=== PATIENT | female | born 2000 | race Caucasian/White ===

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

== ENCOUNTER → 2020-06-05 14:08 | Outpatient (CLI) | payer OTHER, SELFPAY ==
[2020-06-05 13:36] VITALS: BMI 21.9
[2020-06-05 14:54] LABS: Absolute Lymphocyte Count 1.27 X10^3/uL (0.83-4.51); Absolute Neutrophil Count 3.4 X10^3/uL (2.0-7.7); Basophil# 0.03 X10^3/uL; Basophil% 0.6 % (0-1); Eosinophil# 0.06 X10^3/uL; Eosinophils% 1.2 % (0-5); Hematocrit 41.9 % (37-47); Hemoglobin 13.4 g/dL (12.0-15.0); Lymphocyte # 1.27 X10^3/ul (4.0); Lymphocyte % 25.2 % (19-41); Mean Platelet Vol. 11.1 fl (6.2-12.0); Monocyte# 0.31 X10^3/uL; Monocyte% 6.2 % (0-10); NRBC Flagged by Analyzer 0 % (0-5); Neutrophil # 3.36 X10^3/uL (2.7-7.7); Neutrophil % 66.6 % (47-70); Platelet Count 216 K/mm3 (150-450); RBC Distribution Width CV 12.2 % (11.6-14.6); RBC Distribution Width SD 43.7 fl (35.1-43.9); Red Blood Count 4.32 M/mm3 (4.2-5.4)
[2020-06-05 15:35] LABS: ALB/GLOB Ratio 1.1 RATIO (0.9-2.4); AST(SGOT) 18 U/L (15-37); Alanine Aminotransfer ALT/SGPT 32 U/L (13-56); Albumin, Serum 4.1 g/dL (3.2-5.0); Alkaline Phosphatase 112 U/L (45-117); Anion Gap 5 (5-15); BUN 11 mg/dL (7-18); BUN/Creat Ratio 15.6 RATIO (10-20); Chloride 106 mmol/L (98-107); Creatinine, Serum 0.71 mg/dL (0.55-1.02); EST Glomerular Filtration Rate 112 mL/min (>60); Est Glom Filt Rate - Afr Amer 136 mL/min (>60); Globulin 3.6 g/dL (2.2-4.2); Glucose 74 mg/dL (74-106); Potassium 3.7 mmol/L (3.5-5.1); Protein, Total 7.7 g/dL (6.4-8.2); Sodium Level 140 mmol/L (136-145); T4 Free Direct 0.83 ng/dL (0.76-1.46); Thyroid Stim Hormone (TSH) 1.07 uIU/mL (0.358-3.74)
== END ==
PROVIDERS: PCP Internal Medicine; Visit Provider Internal Medicine
DX: K59.09 Other constipation (principal)
CPT/HCPCS: 36415; 80053; 84439; 84443; 85025

== ENCOUNTER → 2020-06-21 09:38 | Outpatient (CLI) | payer OTHER, SELFPAY ==
[2020-06-20 15:00] VITALS: BMI 21.9
[2020-06-21 12:52] LABS: Prothrombin Time (Protime)PT. 12.9 SECONDS (11.7-14.9)
[2020-06-21 12:53] LABS: Partial Thromboplast Time 26.9 Seconds (24.1-36.2)
[2020-06-21 12:58] LABS: Vitamin D,25 Hydroxy 28.2 ng/mL
[2020-06-21 13:57] LABS: Absolute Lymphocyte Count 1.21 X10^3/uL (0.83-4.51); Absolute Neutrophil Count 2.6 X10^3/uL (2.0-7.7); Basophil# 0.03 X10^3/uL; Basophil% 0.7 % (0-1); Eosinophil# 0.09 X10^3/uL; Eosinophils% 2.1 % (0-5); Hematocrit 41.4 % (37-47); Hemoglobin 13.1 g/dL (12.0-15.0); Lymphocyte # 1.21 X10^3/ul (0.83-4.51); Lymphocyte % 28.3 % (19-41); Mean Corp Hgb Conc 31.6 g/dL (32-36); Mean Corpuscular Hgb 31.3 pg (27.0-32.0); Mean Corpuscular Volume 98.8 fL (81-99); Mean Platelet Vol. 11.4 fl (6.2-12.0); NRBC Flagged by Analyzer 0 % (0-5); Neutrophil # 2.63 X10^3/uL (2.7-7.7); Neutrophil % 61.7 % (47-70); Platelet Count 230 K/mm3 (150-450); RBC Distribution Width CV 12.6 % (11.6-14.6); RBC Distribution Width SD 45.4 fl (35.1-43.9); Red Blood Count 4.19 M/mm3 (4.2-5.4); White Blood Count 4.3 K/mm3 (4.4-11.0)
== END ==
PROVIDERS: PCP Internal Medicine; Referring Provider Nurse Practitioner Family; Visit Provider Nurse Practitioner Family
DX: R23.3 Spontaneous ecchymoses (principal); R23.8 Other skin changes; E55.9 Vitamin D deficiency, unspecified
CPT/HCPCS: 36415; 82306; 85025; 85610; 85730

== ENCOUNTER → 2020-12-08 10:26 | Outpatient (CLI) | payer OTHER, SELFPAY ==
[2020-12-08 12:28] LABS: Erythrocyte Sedimentation Rate 3 mm/hr (0-30)
[2020-12-08 12:40] LABS: CRP 6.43 mg/L (0.0-3.0); Rheumatoid Factor < 10.0 IU/mL (<15)
[2020-12-09 21:09] LABS: ANTINUCLEAR ANTIBODIES DIRECT Negative (Negative)
[2020-12-12 00:41] LABS: CCP IgG Antibodies 3 units (0-19)
== END ==
PROVIDERS: PCP Internal Medicine; Referring Provider Internal Medicine; Visit Provider Internal Medicine
DX: M19.90 Unspecified osteoarthritis, unspecified site (principal)
CPT/HCPCS: 36415; 85652; 86038; 86140; 86200; 86225; 86235; 86431

== ENCOUNTER 2021-04-30 15:33 | Outpatient (CLI) | payer OTHER, SELFPAY ==
[2021-04-30 19:57] LABS: Chlamydia Trachomatis by PCR Negative (Negative); Neisserai gonorrhoeae by PCR Negative (Negative); Probe Check PASS; Sample Adequacy Control PASS; Specimen Processing Control PASS
[2021-05-01 09:14] LABS: HIV - WCH Non-Reactive (Nonreactive); Hepatitis C Antibody Non-Reactive (Nonreactive); Syphilis Antibodies Non-reactive
[2021-05-02 10:17] LABS: HSV 1 IgG < 0.91 index (0.00-0.90); HSV 2 IgG < 0.91 index (0.00-0.90)
== END 2021-04-30 23:59 | disposition home or self-care (01) ==
PROVIDERS: PCP Internal Medicine; Referring Provider Nurse Practitioner Women's Health; Visit Provider Nurse Practitioner Women's Health
DX: Z11.3 Encounter for screening for infections with a predominantly sexual mode of transmission (principal); Z20.2 Contact with and (suspected) exposure to infections with a predominantly sexual mode of transmission
CPT/HCPCS: 36415; 86695; 86696; 86703; 86780; 86803; 87491; 87591

== ENCOUNTER → 2021-11-26 | Outpatient (CLI) | payer OTHER, SELFPAY ==
[2021-11-26 15:19] LABS: Absolute Lymphocyte Count 1.54 X10^3/uL (0.83-4.51); Absolute Neutrophil Count 3.2 X10^3/uL (2.0-7.7); Basophil# 0.03 X10^3/uL; Basophil% 0.6 % (0-1); Eosinophil# 0.07 X10^3/uL; Eosinophils% 1.4 % (0-5); Hematocrit 40.6 % (37-47); Hemoglobin 13.4 g/dL (12.0-15.0); Lymphocyte # 1.54 X10^3/ul (0.83-4.51); Lymphocyte % 30.3 % (19-41); Mean Corpuscular Hgb 32.2 pg (27.0-32.0); Mean Corpuscular Volume 97.6 fL (81-99); Mean Platelet Vol. 11.3 fl (6.2-12.0); Monocyte# 0.27 X10^3/uL; Monocyte% 5.3 % (0-10); NRBC Flagged by Analyzer 0 % (0-5); Neutrophil # 3.18 X10^3/uL (2.7-7.7); Neutrophil % 62.4 % (47-70); Platelet Count 239 K/mm3 (150-450); RBC Distribution Width CV 11.7 % (11.6-14.6); RBC Distribution Width SD 42.4 fl (35.1-43.9); Red Blood Count 4.16 M/mm3 (4.2-5.4); White Blood Count 5.1 K/mm3 (4.4-11.0)
[2021-11-26 15:59] LABS: ALB/GLOB Ratio 1.1 RATIO (0.9-2.4); AST(SGOT) 19 U/L (15-37); Alanine Aminotransfer ALT/SGPT 30 U/L (13-56); Alkaline Phosphatase 114 U/L (45-117); Anion Gap 6 (5-15); BUN 13 mg/dL (7-18); BUN/Creat Ratio 15.7 RATIO (10-20); Calcium,Total 8.9 mg/dL (8.5-10.1); Chloride 106 mmol/L (98-107); Creatinine, Serum 0.83 mg/dL (0.55-1.02); EST Glomerular Filtration Rate 92 mL/min (>60); Est Glom Filt Rate - Afr Amer 111 mL/min (>60); Globulin 3.5 g/dL (2.2-4.2); Glucose 84 mg/dL (74-106); Potassium 4.1 mmol/L (3.5-5.1); Protein, Total 7.5 g/dL (6.4-8.2); Sodium Level 139 mmol/L (136-145); T4 Free Direct 0.94 ng/dL (0.76-1.46); Thyroid Stim Hormone (TSH) 1.68 uIU/mL (0.358-3.74)
== END | disposition home or self-care (01) ==
LOC: BIMLAB 11:58
PROVIDERS: PCP Internal Medicine; Referring Provider Internal Medicine; Visit Provider Internal Medicine
DX: K59.09 Other constipation (principal)
CPT/HCPCS: 36415; 80053; 84439; 84443; 85025

== ENCOUNTER 2022-01-29 10:54 | Outpatient (CLI) | payer OTHER, SELFPAY ==
[2022-01-29 11:33] LABS: Erythrocyte Sedimentation Rate 3 mm/hr (0-30)
[2022-01-29 12:03] LABS: CRP < 2.90 mg/L (0.0-3.0)
[2022-01-30 12:08] LABS: Anti-Centromere B Ab <0.2 AI (0.0-0.9); Anti-Chromatin <0.2 AI (0.0-0.9); Anti-Jo <0.2 AI (0.0-0.9); Anti-Scleroderma-70 AB <0.2 AI (0.0-0.9); RNP Ab <0.2 AI (0.0-0.9); SJOGREN'S Anti-SS-A test < 0.2 AI (0.0-0.9); SJOGREN'S Anti-SS-B test < 0.2 AI (0.0-0.9); Smith Ab <0.2 AI (0.0-0.9)
[2022-01-30 14:09] LABS: Cytoplasmic Ab (C-ANCA) <1:20 titer (Neg:<1:20); Endomysial Antibody IgA Negative (Negative); Immunoglobulin A 176 mg/dL (87-352)
[2022-01-30 14:36] LABS: Perinuclear Ab (P-ANCA) <1:20 titer (Neg:<1:20); t-Transglutaminase IgA <2 U/mL (0-3)
[2022-01-30 14:46] LABS: Anti-dsDNA Ab <1 IU/mL (0-9)
== END 2022-01-29 23:59 | disposition home or self-care (01) ==
LOC: LAB 10:58
PROVIDERS: PCP Internal Medicine; Referring Provider Nurse Practitioner Adult Health; Visit Provider Nurse Practitioner Adult Health
DX: K59.09 Other constipation (principal)
CPT/HCPCS: 36415; 82784; 83516; 85652; 86140; 86225; 86235; 86255; 86256

== ENCOUNTER → 2022-02-15 | Outpatient (CLI) | payer OTHER, SELFPAY ==
--- NOTE | 2022-02-15 13:11 | CT_ITS ---
STUDY: CT ABDOMEN AND PELVIS WITH CONTRAST REASON FOR EXAM: Female, 21 years old. cons tip, lower abd pain -- oral and iv RADIATION DOSAGE (If Supplied By Facility): CTDIvol = ( 8.82 ) mGy, DLP = ( 394.86 ) mGycm TECHNIQUE: Transaxial images were obtained from the dome of the diaphragm to the symphysis pubis with oral contrast. Oral and amp;amp; IV Readi-CAT and amp;amp; 100mL Isovue-300 was administered. Sagittal and coronal images were reconstructed. Individualized dose optimization techniques were used for this CT. COMPARISON: None. FINDINGS: The visualized lung bases are unremarkable. The visualized portions of the heart are within normal limits. Normal liver. Normal gallbladder and extrahepatic biliary system. Normal spleen. Normal pancreas. Normal bilateral adrenal glands. Normal right kidney. Normal left kidney. Normal visualized stomach. Normal small intestine. Large amount of fecal material is seen in the colon. There are surgical clips in the region of the appendix consistent with a prior appendectomy. Normal abdominal aorta. Normal inferior vena cava. Normal retroperitoneum. Normal urinary bladder. Normal abdominal wall. Normal osseous structures. CT/Abdomen/Pelvis WITH Contrast IMPRESSION: Large amount of fecal material is seen throughout the colon. Electronically Signed: Marcel Sifuentes MD at 15:15 EST ,
== END | disposition home or self-care (01) ==
LOC: CT 13:10
PROVIDERS: PCP Internal Medicine; Referring Provider Nurse Practitioner Adult Health; Visit Provider Nurse Practitioner Adult Health
DX: R10.30 Lower abdominal pain, unspecified (principal); K59.09 Other constipation
CPT/HCPCS: 74177; Q9967

== ENCOUNTER 2022-12-24 12:16 | Emergency (ER) | payer OTHER, SELFPAY ==
[2022-12-24 12:17] VITALS: BP 130/84; PULSE 90; RESP 16; TEMP 36.2; O2SAT 99; BMI 24.3
--- NOTE | 2022-12-24 13:06 | VDLE_ITS ---
Reason For Study: Left leg pain RIGHT LEFT CFV is compressible, spontaneous, phasic, GSV is normal. competent and demonstrates normal CFV is compressible, spontaneous, phasic, augmentation. competent, and demonstrates normal Procedure augmentation. This is a venous duplex using B-mode, color FV is compressible, spontaneous, phasic, flow and spectral Doppler. competent and demonstrates normal Exam performed portable in ED. augmentation. A preliminary report was called and/or faxed POP V is compressible, spontaneous, phasic, to Dr. Espinoza. competent and demonstrates normal augmentation. T/P Trunk is compressible. PTV is compressible. LT PerV is compressible. Superficial vein thrombosis is ntoed in the left SSV. Thrombus is noted to be at origin of SSV from the PopV, without extension into the PopV. VL/Venous Duplex US, Unilateral Interpretation Summary There is no evidence of left lower extremity deep vein thrombosis. Superficial thrombophlebitis left small saphenous vein extending up to but not into the left popliteal vein. Patent and compressible left great saphenous vein Patent and compressible right common femoral vein Ordering Physician: Edgar Martinez Referring Physician: Tracey Stewart Performed By: Jaycee Mina RVT
--- NOTE | 2022-12-24 14:22 | EDS_ITS ---
HPI History of Present Illness HPI Narrative: Patient presents with pain and swelling to her left lower leg that has been getting worse over the last 4 days. Patient states she was on a recent car trip to [place]. Patient states her pain has gradually gotten worse. Patient states it is aching and stabbing. Patient states it is worse with ambulation. Patient denies any paresthesias or weakness. Patient states it is mainly over her lower leg. Patient denies any fevers or chills. Patient is concerned that this could be a DVT. Patient denies any trauma or injury. Chief Complaint: Lower Extremity Injury Informant: patient Onset/Context/Timing Onset: Days (4) Context: Gradual Onset Timing: Continuous Quality of Pain: Aching and Stabbing Location: Left lower leg Worsened by: Ambulation Relieved by: Nothing Associated Symptoms Associated Symptoms: Negative for Parasthesia, Weakness or Loss of Funtion PFSH [facility] Medical History Abdominal pain Anemia Arthritis Asthma Chronic constipation Gastritis Joint pain Joint stiffness Nausea Pulmonary embolism Home Medications lactulose 20 gram/30 mL oral solution 20 g (30 mL) PO DAILY #1,200 mL 04/18/22 [Rx Last Taken Unknown] rivaroxaban 15 mg tablet (Xarelto) 15 mg PO BID #42 TABLETS 12/24/22 [Rx Last Taken Unknown] Allergy/AdvReac Type Severity Reaction Status Date / Time No Known Allergies Allergy Verified 12/24/22 12:20 Family History (Reviewed 04/18/22 @ 11:36 by Nahomi Krause BLOOD BANK CALENDAR CONTROL CLERK, BLOOD BANK CALENDAR CONTROL CLERK-C) Grandfather Diabetes Colon cancer prostate Cancer Heart disease Grandmother Cancer lung Osteoporosis Hypertension Mother Anemia Surgical History H/O esophagogastroduodenoscopy Holiday teeth removed Social History Smoking Status: Never smoker alcohol intake: never substance use type: does not use caffeine: Yes what type of physical activity do you participate in: running and weight training frequency: 3-4 times per week seatbelt use: always ROS ROS ED Constitutional Constitutional ED: Denies chills or fever(s) Eyes Eyes: Denies blurry vision or change in vision ENT ENT ED: Denies rhinorrhea or sore throat Cardiovascular Cardiovascular: Denies chest pain or palpitations Respiratory/Chest Respiratory/Chest: Denies cough or dyspnea Gastrointestinal Gastrointestinal: Denies nausea or vomiting Genitourinary Genitourinary ED: Denies dysuria or hematuria Musculoskeletal Musculoskeletal: Denies back pain or neck pain Integumentary Denies abscess or rash Neurologic Neurologic: Denies headache(s) or weakness Allergic/Immunologic Allergic/Immunologic ED: Denies mouth swelling or urticaria EXAM Physical Exam Const Vital Signs: 12/24/22 12:17 Temperature 97.2 F L Temperature Source Temporal Pulse Rate 90 Respiratory Rate 16 Blood Pressure 130/84 H Blood Pressure Mean 99 Pulse Ox 99 Oxygen Delivery Method Room Air Positive well nourished and well developed General Appearance ED: well developed and NAD HEENT Reports moist mucous membranes Neck full ROM and supple Extremity Extremity Narrative: There is mild tenderness over the left calf. There is no edema or erythema. There is no warmth noted. There is some mild pain with dorsiflexion of the left ankle. There is no ecchymosis noted. Pedal pulses are equal bilaterally. Sensation was intact to light touch bilaterally in the lower extremities. Strength is 5/5 bilaterally in the lower extremities. Neuro oriented x3, CN's II-XII intact bilaterally, moves all extremities and no sensory deficits noted Sensorium / Orientation: alert Motor Exam: strength 5/5 throughout Psych mental status grossly normal MDM MDM MDM Narrative Medical decision making narrative: Differential diagnosis includes DVT, calf strain, and cellulitis. Venous duplex of the left lower extremity will be obtained to assess for DVT. Radiography Diagnostic Testing: Clinical Impression(s) from Imaging Studies Venous Doppler Study 12/24/22 13:06 Interpretation Summary There is no evidence of left lower extremity deep vein thrombosis. Superficial thrombophlebitis left small saphenous vein extending up to but not into the left popliteal vein. Patent and compressible left great saphenous vein Patent and compressible right common femoral vein Ordering Physician: Edgar Martinez Referring Physician: Tracey Stewart Performed By: Jaycee Mina RVT Venous duplex of the left lower extremity was obtained. There is superficial thrombophlebitis however the superficial phlebitis extends almost into the popliteal vein. Treatment and Re-Evaluation Narrative: Patient was advised of her findings. I will discuss the case with the patient's primary care physician to see if she would want patient started on anticoagulants or if she would just want to follow-up and repeat the venous duplex. Case was discussed with Dr. Stewart, patient's primary care physician. She recommended starting the patient on Xarelto. This was ordered. Patient was given her first dose here. Patient was instructed to follow-up in 5 to 7 days. Patient was instructed return if worse in any way. Patient understood and was agreeable with the plan. All questions were answered. Discharge Plan Triage Chief Complaint: Lower Extremity Injury ED Provider: Lance Espinoza Dx/Rx/DC Orders Clinical Impression: Superficial thrombophlebitis of left leg Instructions: ED Thrombophlebitis, Superficial Prescriptions: New Xarelto 15 mg tablet 15 mg PO BID Qty: 42 0RF No Action lactulose 20 gram/30 mL solution 20 g PO DAILY Qty: 1200 5RF Primary Care Provider: Tracey Stewart Referrals: Tracey Stewart MD [Primary Care Provider] - 5-7 Days Disposition Disposition: Home, Self Care Discharge Date/Time: 12/24/22 14:57
[2022-12-24] MEDS: Rivaroxaban 15 MG Tablet PO (14:51)
== END 2022-12-24 14:57 | disposition home or self-care (01) ==
PROVIDERS: Emergency Provider Emergency Medicine; PCP Internal Medicine; Visit Provider Emergency Medicine
DX: I80.02 Phlebitis and thrombophlebitis of superficial vessels of left lower extremity (principal); K59.09 Other constipation; Z79.899 Other long term (current) drug therapy
CPT/HCPCS: 93971; 99282

== ENCOUNTER → 2023-04-29 | Outpatient (CLI) | payer OTHER, SELFPAY ==
[2023-04-29 12:16] LABS: Absolute Lymphocyte Count 1.51 X10^3/uL (0.83-4.51); Absolute Neutrophil Count 2.9 X10^3/uL (2.0-7.7); Basophil# 0.05 X10^3/uL; Eosinophils% 2.1 % (0-5); Hematocrit 41.1 % (37-47); Hemoglobin 13.2 g/dL (12.0-15.0); Lymphocyte # 1.51 X10^3/ul (0.83-4.51); Lymphocyte % 31.1 % (19-41); Mean Corp Hgb Conc 32.1 g/dL (32-36); Mean Corpuscular Hgb 30.1 pg (27.0-32.0); Mean Corpuscular Volume 93.6 fL (81-99); Mean Platelet Vol. 11.3 fl (6.2-12.0); Monocyte# 0.29 X10^3/uL; NRBC Flagged by Analyzer 0 % (0-5); Neutrophil # 2.89 X10^3/uL (2.7-7.7); Neutrophil % 59.6 % (47-70); Platelet Count 242 K/mm3 (150-450); RBC Distribution Width CV 11.9 % (11.6-14.6); RBC Distribution Width SD 40.9 fl (35.1-43.9); Red Blood Count 4.39 M/mm3 (4.2-5.4); White Blood Count 4.9 K/mm3 (4.4-11.0)
[2023-04-29 12:33] LABS: ALB/GLOB Ratio 1.2 RATIO (0.9-2.4); AST(SGOT) 12 U/L (15-37); Alanine Aminotransfer ALT/SGPT 28 U/L (13-56); Albumin, Serum 4.1 g/dL (3.2-5.0); Alkaline Phosphatase 82 U/L (45-117); Anion Gap 6 (5-15); BUN 12 mg/dL (7-18); BUN/Creat Ratio 13.8 RATIO (10-20); Calcium,Total 9.3 mg/dL (8.5-10.1); Chloride 107 mmol/L (98-107); Creatinine, Serum 0.87 mg/dL (0.55-1.02); EST Glomerular Filtration Rate 86 mL/min (>60); Est Glom Filt Rate - Afr Amer 104 mL/min (>60); Globulin 3.5 g/dL (2.2-4.2); Glucose 91 mg/dL (74-106); Potassium 4.1 mmol/L (3.5-5.1); Protein, Total 7.6 g/dL (6.4-8.2); Sodium Level 141 mmol/L (136-145)
== END | disposition home or self-care (01) ==
LOC: BIMLAB 08:23
PROVIDERS: PCP Internal Medicine; Referring Provider Nurse Practitioner; Visit Provider Nurse Practitioner
DX: D64.9 Anemia, unspecified (principal)
CPT/HCPCS: 36415; 80053; 85025

== ENCOUNTER 2023-06-11 18:49 | Observation (INO) | payer OTHER, SELFPAY ==
[2023-06-11 18:49] VITALS: BP 135/83; PULSE 105; RESP 18; TEMP 36.3; O2SAT 100; BMI 22.6
--- NOTE | 2023-06-11 19:12 | EKG12_ITS ---
Test Reason : CHEST OTHER Blood Pressure : / mmHG Vent. Rate : 082 BPM Atrial Rate : 082 BPM P-R Int : 144 ms QRS Dur : 072 ms QT Int : 370 ms P-R-T Axes : 055 064 057 degrees QTc Int : 432 ms Normal sinus rhythm Normal ECG Confirmed by SHAILA REID, STEPHANIE ([id number]), story editor HALEY KNOX ([id number]) on 06/13/2023 9:09:27 AM Referred By: MARY Confirmed By:STEPHANIE LINTON MD
--- NOTE | 2023-06-11 19:31 | EDS_ITS ---
HPI History of Present Illness Chief Complaint: Chest Other Informant: patient Onset/Context/Timing Onset: Today Activity at onset: gradual Timing: Continuous Location: Substernal and Right Parasternal Worsened By: Breathing Relieved By: Nothing Associated Symptoms: Positive for Diaphoresis, Dyspnea, Lightheadedness and Palpitations; Negative for Nausea, Vomiting, Cough, Fever or Acid Reflux Narrative Narrative: Patient presents with chest pain and shortness of breath that has been getting worse over the past couple days. Patient states she has been having some shortness of breath over the past few days but today started having some pain in her chest. Patient states it is over the substernal area and radiates up into the right chest. Patient states it is worse with breathing. Patient states she has been having some sweats and lightheadedness. Patient states she also has been having some palpitations. Patient states she has been feeling weak. Patient had a recent foot surgery. Patient states she has had prior pulmonary emboli. CVD Risk Factors: Negative for Hypertension, Diabetes, Hypercholesterolemia, Family History 1' </=55 or Smoking PE Risk Factors: Positive for Recent Travel/Surgery and Prior DVT or PE; Negative for Recent Immobilization, Cancer or OCP + Smoking + >/=35 PFSH PFSH Medical History (Updated 06/11/23 @ 22:[address] Lance Espinoza, DO) Anemia Arthritis Chronic constipation Dairy product intolerance GERD (gastroesophageal reflux disease) History of venous thromboembolism Pulmonary embolism Home Medications cholecalciferol (vitamin D3) 25 mcg (1,000 unit) capsule 25 mcg PO DAILY 03/20/23 [History Last Taken Unknown] ferrous sulfate 325 mg (65 mg iron) tablet (Feosol) 325 mg PO DAILY 03/20/23 [History Last Taken Unknown] Allergy/AdvReac Type Severity Reaction Status Date / Time No Known Allergies Allergy Verified 04/29/23 08:01 Family History Grandfather Diabetes paternal Cancer paternal Heart disease paternal Colon cancer paternal Grandmother Cancer lung - maternal Osteoporosis paternal Hypertension maternal Mother Anemia Grandfather Blood clot in leg maternal - post knee surgery Surgical History (Updated 06/11/23 @ 22:[address] Michelle Rodriguez MD) H/O esophagogastroduodenoscopy History of foot surgery [place] teeth removed Social History Smoking Status: Never smoker alcohol intake: current alcohol intake frequency: a few times a month substance use type: does not use caffeine: Yes Type: coffee Number of servings: 1 what type of physical activity do you participate in: running and weight training frequency: 3-4 times per week seatbelt use: always ROS ROS ED Constitutional Constitutional ED: Reports sweats; Denies chills or fever(s) Eyes Eyes: Denies blurry vision or change in vision ENT ENT ED: Denies rhinorrhea or sore throat Cardiovascular Cardiovascular: Reports chest pain and palpitations Respiratory/Chest Respiratory/Chest: Reports dyspnea; Denies cough Gastrointestinal Gastrointestinal: Denies nausea or vomiting Genitourinary Genitourinary ED: Denies dysuria or hematuria Musculoskeletal Musculoskeletal: Denies back pain or neck pain Integumentary Denies abscess or rash Neurologic Neurologic: Denies headache(s) or weakness Allergic/Immunologic Allergic/Immunologic ED: Denies mouth swelling or urticaria EXAM Physical Exam Const Vital Signs: 06/11/23 18:49 06/11/23 18:49 06/11/23 18:49 Temperature 97.3 F L Temperature Source Temporal Pulse Rate 105 H Respiratory Rate 18 Respiratory Effort Normal Blood Pressure 135/83 H Blood Pressure Mean 100 Pulse Ox 100 Oxygen Delivery Method Room Air Room Air 06/11/23 19:49 06/11/23 20:49 Temperature Temperature Source Pulse Rate 84 Respiratory Rate 16 Respiratory Effort Blood Pressure 135/76 H Blood Pressure Mean 95 Pulse Ox 98 Oxygen Delivery Method Room Air Room Air Positive well nourished, well developed and obese General Appearance ED: well developed Nutritional Appearance: obese HEENT Reports moist mucous membranes Neck supple and no JVD Resp normal respiratory effort and clear to auscultation bilaterally Cardio regular rate and regular rhythm GI soft to palpation, non-tender and non-distended Neuro oriented x3, CN's II-XII intact bilaterally and no sensory deficits noted Sensorium / Orientation: awake and alert Motor Exam: strength 5/5 throughout Psych mental status grossly normal MDM MDM MDM Narrative Medical decision making narrative: Differential diagnosis includes cardiac dysrhythmia, cardiac ischemia, pulmonary embolism, electrolyte abnormality, and anemia. CBC will be obtained to assess for leukocytosis and anemia. Basic metabolic profile will be obtained to assess for renal function and electrolyte abnormality. PT was INR will be obtained to assess for coagulopathy. High-sensitivity troponin will be obtained to assess for cardiac ischemia. EKG will be obtained to assess for cardiac dysrhythmia and cardiac ischemia. CTA of the chest will be obtained to assess for pulmonary embolism. Lab Data Attestation: I reviewed the patient's lab results. Lab results narrative: CBC was reviewed and was within normal limits. PT with INR was reviewed and was within normal limits. Basic metabolic profile was reviewed and was within normal limits. High-sensitivity troponin was reviewed and was normal at 8. Labs: Laboratory Results - last 24 hr 06/11/23 20:20 WBC 7.8 RBC 4.18 L Hgb 12.7 Hct 37.4 MCV 89.5 MCH 30.4 MCHC 34.0 RDW Std Deviation 38.0 RDW Coeff of Gopi 11.7 Plt Count 173 MPV 10.8 Immature Gran % (Auto) 0.300 Neut % (Auto) 71.4 H Lymph % (Auto) 20.5 Pierce % (Auto) 5.4 Eos % (Auto) 1.8 Baso % (Auto) 0.6 Absolute Neuts (auto) 5.5 Absolute Lymphs (auto) 1.59 Nucleated RBC % 0 PT 13.9 INR 1.1 Sodium 139 Potassium 3.9 Chloride 107 Carbon Dioxide 26.0 Anion Gap 6 BUN 13 Creatinine 0.76 Estim Creat Clear Calc 104.48 Est GFR (MDRD) Af Amer 122 Est GFR (MDRD) Non-Af 101 BUN/Creatinine Ratio 17.2 Glucose 87 Calcium 9.1 Troponin I High Sens 8 Radiography Diagnostic Testing: Clinical Impression(s) from Imaging Studies Chest CTA 06/11/23 19:41 IMPRESSION: Large saddle pulmonary embolus without evidence of right heart strain. Chronic prominent left ventricular chamber size. Follow-up echocardiogram may be beneficial when clinically able to exclude cardiomyopathy. Electronically Signed: Jesse Montaño MD at 21:24 EDT , CTA of the chest was obtained. There is a large saddle pulmonary embolus but no evidence of right heart strain. There is chronic left ventricular enlargement. This was interpreted by the radiologist and was also independently reviewed by myself. EKG Initial EKG: Attestation: I personally reviewed and interpreted this EKG as follows: Interpretation: Sinus Rhythm (82) and No Acute Injury Pattern Comments: EKG was obtained. On my independent interpretation, it showed a normal sinus rhythm with a rate of 82. [place] interval, QRS interval, and QTc intervals were all normal. [place] was normal. There are no acute ST or T wave changes. Prior EKG tracings: available for review Prior: Unchanged (09/15/2017) Treatment and Re-Evaluation :: Patient was advised of her findings. Patient was started on Lovenox. 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 Case was discussed with the transfer line at [facility]. There are no available beds. Patient is agreeable to be admitted here. Case was discussed with the hospitalist. She will admit the patient to her service. Patient and family understood and were agreeable with the plan. All questions were answered. Discharge Plan Triage Chief Complaint: Chest Other ED Provider: Lance Espinoza Dx/Rx/DC Orders Clinical Impression: Dyspnea, Pulmonary embolism Prescriptions: No Action cholecalciferol (vitamin D3) 25 mcg (1,000 unit) capsule 25 mcg PO DAILY ferrous sulfate [Feosol] 325 mg (65 mg iron) tablet 325 mg PO DAILY Primary Care Provider: Tracey Stewart Referrals: Tracey Stewart MD [Primary Care Provider] - Disposition Disposition: Acute Care Hospital [facility]
--- NOTE | 2023-06-11 19:41 | CT_ITS ---
We are attempting to reach an attending provider to discuss findings. An addendum with communication details will be sent when the communication is complete. STUDY: CTA CHEST REASON FOR EXAM: Female, 22 years old. Chest pain RADIATION DOSAGE (If Supplied By Facility): CTDIvol = ( 6.49 ) mGy, DLP = ( 174.15 ) mGycm TECHNIQUE: The examination was performed with the intravenous administration of IV 100mL Isovue-370. Post-processing of the angiographic images was performed, with multiplanar reformation and 3D reconstruction. Individualized dose optimization techniques were used for this CT. COMPARISON: January 29, 2019. FINDINGS: Unremarkable thyroid. Large saddle pulmonary embolus extending into bilateral lower lobe and upper lobe branches and multiple segments. Slight enlargement of the main pulmonary artery. No overall cardiomegaly. Normal RV LV ratio. Persistent prominent left ventricle chamber size compared with prior CT. No reflux of contrast into the IVC. No pericardial effusion or densely calcified coronary atherosclerosis. No aortic aneurysmal dilatation or dissection. No mediastinal or hilar adenopathy. Unremarkable esophagus. No endobronchial lesion. Minimal atelectasis along the left lateral lower lung. No consolidation, gross infarct, effusion, pneumothorax. Normal pulmonary parenchyma. Normal osseous structures. Normal visualized upper abdomen. CT/CTA Chest W/WO Contrast IMPRESSION: Large saddle pulmonary embolus without evidence of right heart strain. Chronic prominent left ventricular chamber size. Follow-up echocardiogram may be beneficial when clinically able to exclude cardiomyopathy. Electronically Signed: Jesse Montaño MD at 21:24 EDT ,
[2023-06-11 20:30] LABS: Absolute Lymphocyte Count 1.59 X10^3/uL (0.83-4.51); Absolute Neutrophil Count 5.5 X10^3/uL (2.0-7.7); Basophil# 0.05 X10^3/uL; Basophil% 0.6 % (0-1); Eosinophil# 0.14 X10^3/uL; Eosinophils% 1.8 % (0-5); Hematocrit 37.4 % (37-47); Hemoglobin 12.7 g/dL (12.0-15.0); Lymphocyte # 1.59 X10^3/ul (0.83-4.51); Lymphocyte % 20.5 % (19-41); Mean Corpuscular Hgb 30.4 pg (27.0-32.0); Mean Corpuscular Volume 89.5 fL (81-99); Mean Platelet Vol. 10.8 fl (6.2-12.0); Monocyte# 0.42 X10^3/uL; Monocyte% 5.4 % (0-10); NRBC Flagged by Analyzer 0 % (0-5); Neutrophil # 5.53 X10^3/uL (2.7-7.7); Neutrophil % 71.4 % (47-70); Platelet Count 173 K/mm3 (150-450); RBC Distribution Width CV 11.7 % (11.6-14.6); Red Blood Count 4.18 M/mm3 (4.2-5.4); White Blood Count 7.8 K/mm3 (4.4-11.0)
[2023-06-11 20:44] LABS: International Normalized Ratio 1.1; Prothrombin Time (Protime)PT. 13.9 SECONDS (11.7-14.9)
[2023-06-11 20:49] VITALS: BP 135/76; PULSE 84; RESP 16; O2SAT 98
[2023-06-11 20:49] LABS: Anion Gap 6 (5-15); BUN 13 mg/dL (7-18); BUN/Creat Ratio 17.2 RATIO (10-20); Calcium,Total 9.1 mg/dL (8.5-10.1); Chloride 107 mmol/L (98-107); Creatinine, Serum 0.76 mg/dL (0.55-1.02); EST Glomerular Filtration Rate 101 mL/min (>60); Est Glom Filt Rate - Afr Amer 122 mL/min (>60); Estimated Creatinine Clearance 104.48 ml/min; Glucose 87 mg/dL (74-106); Potassium 3.9 mmol/L (3.5-5.1); Sodium Level 139 mmol/L (136-145); Troponin-I HS (w/2H Reflex) 8 pg/mL (3.0-54.0)
[2023-06-11 22:00] VITALS: BP 119/81; PULSE 94; RESP 14; TEMP 36.8; O2SAT 98
--- NOTE | 2023-06-11 22:25 | PCM.HP.STD ---
HPI - General General Date of Admission: 06/11/23 Date of Service: 06/11/23 Chief Complaint: Dyspnea, chest pain. HPI Narrative The patient is a 22 y/o F w/ PMHx: Chronic anemia, Chronic constipation, GERD w/ Gastritis history, Diary intolerance, Hx VTE previously while on control, following prolonged car ride with eventual hypercoagulable panel only notable for isolated low free protein S with recent podiatric surgery transition to following per report to aspirin only who now presents to the [facility] ED on 06/11/23 with onset of substernal and right parasternal chest discomfort worsened with deep inspiratory effort with associated dyspnea, lightheadedness, palpitations and diaphoresis worse over the last several days and worse with exertion with generalized weakness and fatigue prompting eventual ED evaluation. Workup in the ED included T97.3, heart rate 105, BP 135/83, respiratory rate 18, 100% on room air with most recent repeat vitals heart rate 84, BP 135/76, respiratory rate 16, 98% on room air, CBC with WBC 7.8, hemoglobin 12.7, MCV 89.5, platelet 173 without marked shift, unremarkable coags, unremarkable BMP, troponin 8, CTPA with a large Saddle pulmonary embolus without evidence of any right heart strain, chronic prominent LV chamber size, EKG with sinus rhythm with no acute evidence of ischemia unchanged from previous. In the ED patient administered therapeutic Lovenox x 1. [facility] Medical History Anemia Arthritis Chronic constipation Dairy product intolerance GERD (gastroesophageal reflux disease) History of venous thromboembolism Pulmonary embolism Home Medications aspirin 325 mg capsule 325 mg PO DAILY dvt prophalaxis 06/11/23 [History Last Taken Unknown] Allergy/AdvReac Type Severity Reaction Status Date / Time No Known Allergies Allergy Verified 06/11/23 22:58 Family History Grandfather Diabetes paternal Cancer paternal Heart disease paternal Colon cancer paternal Grandmother Cancer lung - maternal Osteoporosis paternal Hypertension maternal Mother Anemia Grandfather Blood clot in leg maternal - post knee surgery Father No problems noted. Surgical History H/O esophagogastroduodenoscopy History of foot surgery [place] teeth removed Social History Smoking Status: Never smoker alcohol intake: current alcohol intake frequency: a few times a month substance use type: does not use caffeine: Yes Type: coffee Number of servings: 1 what type of physical activity do you participate in: running and weight training frequency: 3-4 times per week seatbelt use: always ROS ROS Narrative Admission Review of Systems: CONSTITUTIONAL: No weight loss, fever, chills, + weakness or fatigue. HEENT: + Lightheadedness. Eyes: No visual loss, blurred vision, double vision or yellow sclerae. Ears, Nose, Throat: No hearing loss, sneezing, congestion, runny nose or sore throat. SKIN: + Recent podiatric surgery, healing well. CARDIOVASCULAR: + Pleuritic chest discomfort, lightheadedness, palpitations. No marked edema, orthopnea, syncopal events. RESPIRATORY: + Dyspnea. Cough or sputum, wheezing, hemoptysis. GASTROINTESTINAL: No anorexia, nausea, vomiting or diarrhea, abdominal pain, melena, BRBPR. GENITOURINARY: No dysuria, frequency, urgency or retention. NEUROLOGICAL: No headache, dizziness, syncope, paralysis, ataxia, numbness or tingling in the extremities, focal weakness, change in bowel or bladder control, seizure. MUSCULOSKELETAL: + muscle, back pain, joint pain or stiffness. HEMATOLOGIC: + History of anemia, no recent easy bleeding/bruising history. LYMPHATICS: No enlarged nodes. No history of splenectomy. PSYCHIATRIC: No history of depression or anxiety. ENDOCRINOLOGIC: No reports of sweating, cold or heat intolerance. No polyuria or polydipsia. ALLERGIES: No history of asthma, hives, eczema or rhinitis. Vital Signs Vital Signs Vital Signs: 06/11/23 18:49 06/11/23 18:49 06/11/23 18:49 Temperature 97.3 F L Temperature Source Temporal Pulse Rate 105 H Respiratory Rate 18 Respiratory Effort Normal Blood Pressure 135/83 H Blood Pressure Mean 100 Pulse Ox 100 Oxygen Delivery Method Room Air Room Air 06/11/23 19:49 06/11/23 20:49 Temperature Temperature Source Pulse Rate 84 Respiratory Rate 16 Respiratory Effort Blood Pressure 135/76 H Blood Pressure Mean 95 Pulse Ox 98 Oxygen Delivery Method Room Air Room Air Weight Weight: 136 lb Body Mass Index (BMI) 22.6 Physical Exam Narrative Physical Examination: General: Awake, alert, oriented x 3 and cooperative, seated upright in the ED bed, fatigued but well-appearing with no distress evident. Skin: Normal color, normal turgor, no icterus, no cyanosis, healing well from recent podiatric surgery. HEENT: AT/NC, EOMI, PERRLA, MMM, no carotid bruits or JVD noted. Lungs: CTA bilaterally, moderate effort, mild decrease BL bases, no rales, ronchi or wheezing. Heart: Mildly tachycardic with regular rhythm; no gallop, rub audible. Abdomen: Soft, NTTP, ND, normal BS, no HSM. Extremities: No cyanosis, clubbing, or edema. Neurological: Patient awake, alert, oriented as noted, cognitive function intact; pupils equally reactive to light and accommodation, cranial nerves II-XII grossly normal, moving all 4 extremities, no focal deficits, strength mildly to moderately globally decreased secondary to acute presentation. Psychiatric: Affect appears fatigued otherwise normal, no acute evidence of depressive or anxiety feelings. Results Lab / Micro Data 06/11/23 20:20 06/11/23 20:20 Labs: Laboratory Results - last 24 hr 06/11/23 20:20: WBC 7.8, RBC 4.18 L, Hgb 12.7, Hct 37.4, MCV 89.5, MCH 30.4, MCHC 34.0, RDW Std Deviation 38.0, RDW Coeff of Gopi 11.7, Plt Count 173, MPV 10.8, Immature Gran % (Auto) 0.300, Neut % (Auto) 71.4 H, Lymph % (Auto) 20.5, [place] % (Auto) 5.4, Eos % (Auto) 1.8, Baso % (Auto) 0.6, Absolute Neuts (auto) 5.5, Absolute Lymphs (auto) 1.59, Nucleated RBC % 0, PT 13.9, INR 1.1, Sodium 139, Potassium 3.9, Chloride 107, Carbon Dioxide 26.0, Anion Gap 6, BUN 13, Creatinine 0.76, Estim Creat Clear Calc 104.48, Est GFR (MDRD) Af Amer 122, Est GFR (MDRD) Non-Af 101, BUN/Creatinine Ratio 17.2, Glucose 87, Calcium 9.1, Troponin I High Sens 8 Imaging Radiology Impression Chest CTA 06/11/23 19:41 IMPRESSION: Large saddle pulmonary embolus without evidence of right heart strain. Chronic prominent left ventricular chamber size. Follow-up echocardiogram may be beneficial when clinically able to exclude cardiomyopathy. Electronically Signed: Jesse Montaño MD at 21:24 EDT , ADDENDUM: 06/11/23 2212 IMPRESSION: Large saddle pulmonary embolus without evidence of right heart strain. Chronic prominent left ventricular chamber size. Follow-up echocardiogram may be beneficial when clinically able to exclude cardiomyopathy. N.B. : The above Results were Read Back by Jesse Montaño MD to Lance Espinoza DO, and understanding confirmed on 06/11/2023 22:05:42 (ET). Electronically Signed: Jesse Montaño MD at 21:24 EDT , Assessment & Plan Assessment/Plan (1) Pulmonary embolism: PLAN: Plan The patient is a 22 y/o F w/ PMHx: Chronic anemia, Chronic constipation, GERD w/ Gastritis history, Diary intolerance, Hx VTE previously while on control, following prolonged car ride with eventual hypercoagulable panel only notable for isolated low free protein S with recent podiatric surgery transition to following per report to aspirin only who now presents to the [facility] ED on 06/11/23 with onset of substernal and right parasternal chest discomfort worsened with deep inspiratory effort with associated dyspnea, lightheadedness, palpitations and diaphoresis worse over the last several days and worse with exertion with generalized weakness and fatigue prompting eventual ED evaluation. #1. 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 Patient with history of VTE while on control with limited hypercoagulable panel at that time as she had been on anticoagulation with recurrent emboli during her prolonged car ride of 8 hours with a distal acute superficial phlebitis involving the small saphenous vein up to the popliteal vein placed on anticoagulation at that time eventually de-escalated off again with hypercoagulable panel 02/2023 notable for only isolated low free protein S with the rest of the panel normal with hematology recommendations for no long-term anticoagulation if normal activities ongoing, planned repeat protein S profile in the future, avoidance for life of estrogen containing preparations, therapeutic level anticoagulation with low molecular weight heparin during , venous thromboembolism prophylaxis postoperatively starting 12 to 24 hours following any electively planned orthopedic surgeries on the back or lower extremities, recommendation for frequent ambulation/calf exercises and graduated compression stockings with any travel more than 4 to 6 hours. From discussion with patient and family most recent evaluation with repeat protein S evaluation was normal therefore hematology had been amenable to patient being on aspirin therapy only following recent surgery. EKG without acute findings, troponin normal x 1. Will admit to PCU, maintain on cardiac telemetry. Will obtain ECHO, BNP. Will continue therapeutic lovenox regimen with pending AM insurance oral regimen investigation. At this point given the severity of this presentation patient likely needs to be on lifelong anticoagulation. #2. Recent left great toe surgery with heel bone marrow aspiration: Encourage strongly patient to continue using boot as recommended per her surgeon with ambulation, elevation extremity. Patient had been on full-strength aspirin therapy postoperative prophylaxis. #3. Chronic anemia/iron deficiency anemia: Noted previous history, not on any chronic iron therapy currently, admission CBC with hemoglobin 12.7, MCV 89.5, encourage continued outpatient follow-up with hematology. #4. Chronic constipation: Will have as needed bowel agents. #5. GERD with history of gastritis: Not on any chronic regimen, if necessary may add, as needed Mylanta therapy. #6. DVT prophylaxis: Therapeutic Lovenox pending NOAC oral cost investigation. Charges/Coding Visit Charges Inpatient E&M: 09460 Init Hosp L2
[2023-06-11 22:27] LABS: Reflex Troponin-HS? (from REC) Y
[2023-06-11] MEDS: Enoxaparin 60 MG/0.6 ML Syringe SC (22:39)
[2023-06-11] MEDS: Morphine 4 MG/ML Syringe IV (22:52)
[2023-06-11] MEDS: Ondansetron 4 MG/2 ML Vial IV (22:52)
[2023-06-11 23:06] VITALS: BP 112/74; PULSE 110; RESP 14; TEMP 36.8; O2SAT 98
[2023-06-11 23:27] VITALS: BMI 22.4
--- NOTE | 2023-06-11 23:59 | ECHOD_ITS ---
Reason For Study: PE Procedure This was a 2D Doppler, Color Flow transthoracic echocardiogram. Exam performed portable in patient room. Left Ventricle Normal LV size. Left ventricular systolic function is normal. The estimated ejection fraction is 53 %. No regional wall motion abnormalities noted. Right Ventricle Normal RV size. Normal systolic function. Atria Normal left atrium. Normal right atrium. Mitral Valve Normal mitral valve. Tricuspid Valve The tricuspid valve is not well visualized. Mild (1+) tricuspid valve insufficiency. Pulmonary artery systolic pressure is 34 mmHg. Aortic Valve Normal aortic valve. Pulmonic Valve Normal pulmonic valve. Great Vessels Normal aortic root. The pulmonary artery is normal size. Normal inferior vena cava. Pericardium/Pleural No pericardial effusion. MMode/2D Measurements & Calculations LVIDd: 3.9 cm IVSd: 0.78 cm Ao root diam: 2.5 cm LVIDs: 2.8 cm LVPWd: 0.83 cm RVDd: 3.4 cm FS: 28.2 % LAV(MOD-bp): 30.7 ml LVAd ap4: 27.5 cm2 SV(MOD-sp4): 44.4 ml LAV(MOD-bp) Indexed: 18.3 ml/m2 LVLd ap4: 7.6 cm LAV(MOD-sp2): 26.0 ml EDV(MOD-sp4): 84.0 ml LAV(MOD-sp4): 28.0 ml EDV(sp4-el): 84.4 ml LVAs ap4: 17.6 cm2 LVLs ap4: 6.6 cm ESV(MOD-sp4): 39.6 ml ESV(sp4-el): 40.1 ml EF(MOD-sp4): 52.9 % EF(sp4-el): 52.5 % SV(sp4-el): 44.3 ml LA A4 area: 13.7 cm2 LA dimension(2D): 2.6 cm RA A4 area: 11.3 cm2 TAPSE: 1.9 cm Time Measurements MV dec time: 0.18 sec Doppler Measurements & Calculations MV E max jamal: 68.2 cm/sec Lat Peak E' Jamal: 23.2 cm/sec Med Peak E' Jamal: 14.6 cm/sec MV A max jamal: 46.9 cm/sec E/E' lat: 2.9 E/E' med: 4.7 MV E/A: 1.5 MV V2 max: 91.0 cm/sec Ao V2 max: 120.7 cm/sec MV max P.3 mmHg MV dec slope: 404.7 cm/sec2 Ao max P.8 mmHg MV V2 mean: 54.2 cm/sec Ao V2 mean: 86.0 cm/sec MV mean P.4 mmHg Ao mean P.4 mmHg MV V2 VTI: 22.7 cm Ao V2 VTI: 22.7 cm AV (velocity ratio): 0.90 LV V1 max: 112.3 cm/sec TR max jamal: 269.7 cm/sec LV V1 max P.0 mmHg TR max P.1 mmHg LV V1 mean P.9 mmHg LV V1 mean: 80.7 cm/sec LV V1 VTI: 20.3 cm ECHO/Echo Complete Interpretation Summary Normal LV size. Left ventricular systolic function is normal. The estimated ejection fraction is 53 %. Pulmonary artery systolic pressure is 34 mmHg. Ordering Physician: Michelle Rodriguez Referring Physician: Tracey Stewart Performed By: Verónica Jamil and Student
[2023-06-12] VITALS: BP 120/77; PULSE 89; RESP 18; TEMP 36.5; O2SAT 98
[2023-06-12 00:10] LABS: BNP,B-Type NATRIURETIC PEPTIDE 4.1 pg/mL (0-100)
[2023-06-12 00:12] LABS: Troponin-I HS 8 pg/mL (3.0-54.0)
[2023-06-12 05:10] VITALS: BP 96/64; PULSE 85; RESP 15; TEMP 36.2; O2SAT 95
[2023-06-12] MEDS: Acetaminophen 325 MG Tablet 650 MG PO ×2 (05:18→10:31)
[2023-06-12] MEDS: Enoxaparin 60 MG/0.6 ML Syringe SC (05:19)
[2023-06-12 07:28] LABS: Absolute Lymphocyte Count 2.15 X10^3/uL (0.83-4.51); Absolute Neutrophil Count 3.7 X10^3/uL (2.0-7.7); Basophil# 0.04 X10^3/uL; Basophil% 0.6 % (0-1); Eosinophil# 0.16 X10^3/uL; Eosinophils% 2.5 % (0-5); Hematocrit 34.2 % (37-47); Hemoglobin 11.8 g/dL (12.0-15.0); Lymphocyte # 2.15 X10^3/ul (0.83-4.51); Lymphocyte % 33.2 % (19-41); Mean Corp Hgb Conc 34.5 g/dL (32-36); Mean Corpuscular Hgb 30.8 pg (27.0-32.0); Mean Corpuscular Volume 89.3 fL (81-99); Mean Platelet Vol. 11.5 fl (6.2-12.0); Monocyte# 0.41 X10^3/uL; Monocyte% 6.3 % (0-10); NRBC Flagged by Analyzer 0 % (0-5); Neutrophil % 57.1 % (47-70); Platelet Count 173 K/mm3 (150-450); RBC Distribution Width CV 11.8 % (11.6-14.6); Red Blood Count 3.83 M/mm3 (4.2-5.4); White Blood Count 6.5 K/mm3 (4.4-11.0)
[2023-06-12 07:52] VITALS: O2SAT 100
[2023-06-12 08:21] LABS: ALB/GLOB Ratio 1.1 RATIO (0.9-2.4); AST(SGOT) 18 U/L (15-37); Alanine Aminotransfer ALT/SGPT 21 U/L (13-56); Albumin, Serum 3.5 g/dL (3.2-5.0); Alkaline Phosphatase 73 U/L (45-117); Anion Gap 9 (5-15); BUN 11 mg/dL (7-18); BUN/Creat Ratio 14.6 RATIO (10-20); Calcium,Total 8.7 mg/dL (8.5-10.1); Chloride 107 mmol/L (98-107); Creatinine, Serum 0.75 mg/dL (0.55-1.02); EST Glomerular Filtration Rate 101 mL/min (>60); Est Glom Filt Rate - Afr Amer 123 mL/min (>60); Estimated Creatinine Clearance 105.87 ml/min; Globulin 3.1 g/dL (2.2-4.2); Glucose 91 mg/dL (74-106); Potassium 3.5 mmol/L (3.5-5.1); Protein, Total 6.6 g/dL (6.4-8.2); Sodium Level 139 mmol/L (136-145)
[2023-06-12 10:26] VITALS: BP 105/69; PULSE 80; RESP 16; TEMP 36.4; O2SAT 98
--- NOTE | 2023-06-12 12:08 | CASEMGMT ---
Addendum entered by Aicha Winkler 06/12/23 14:34: Spoke to pt mother and they are fine with rx being sent to [facility]. Med was ordered before changed in computer system. Original Note: OPAL SOMMER Assessment: Face to Face with pt for initial transition planning/care coordination assessment. OPAL SOMMER introduced self and role at [facility], pt voices understanding and consents to assessment. Pt is A&O x4 and answers all questions appropriately at this time. Pt lying in bed in no distress with mother at bedside. Pt agreeable to assessment with mother present. Care providers, pharmacy, and demographics verified/updated. Admitting Dx: acute saddle PE, dyspnea/cp PCP:Terry Specialists:emeterio Swanson at [facility]; alondra Briscoe Preferred Pharmacy: [facility] Insurance: [employer] Prescription Benefit: yes LNOK: April Sampson, mother; Chadd Sampson, father Living Arrangements: Pt lives with parents and sister in a two story home with 3 steps to enter without a rail. Pt reports she is I in ADL's and denies concerns at home. Pt has a boot in the room that she states she uses to walk with. Transportation: Pt drives self and denies concerns with transportation. DME:walking boot, crutches HHC/SNF: Denies hx of Pt states no concerns with going home at time of dc. Pt states no further concerns/needs. CM to follow. Advised pt to ask CM if any further question/concerns/needs arise, voices understanding. Pt Goal: Home Plan: Home, follow for jada Tolbert RN, CM
--- NOTE | 2023-06-12 13:44 | DCINST_ITS ---
Discharge Instructions Diet Discharge Diet: No restrictions Activity Discharge Activity: No Restrictions Weight Bearing Status: Full weight bearing Follow Up Care Test Results: Test results from this visit will be discussed in further detail at your follow- up appointment, if applicable. Discharge Plan Admission Admit Date/Time: 06/11/23 22:25 Primary Reason for Your Visit: Shortness of breath Attending Provider: Jignesh Castellon Primary Care Provider: Tracey Stewart Consulting Providers: Michelle Rodriguez Instructions Additional Instructions / Restrictions: Please take Xarelto below as instructed. Please call Dr. Rogers's office in the next few weeks to schedule a follow-up appointment with him. Discharge Orders/Prescriptions Prescriptions: New Xarelto DVT-PE Treat 30d Start 15 mg (42)- 20 mg (9) tablets,dose pack See Rx Instructions .ROUTE .COMPLEX Qty: 51 0RF Rx Instructions: take one-15 mg tablet twice daily for 21 days, then one-20 mg tablet once daily; must take with meal/food Discontinued aspirin 325 mg capsule 325 mg PO DAILY Referrals / Follow Up: Tracey Stewart MD [Primary Care Provider] - Disposition Disposition (needs filled in before D/C Order can be placed): Home, Self Care
--- NOTE | 2023-06-12 13:47 | DS.PCM_ITS ---
Providers Date of Admission: 06/11/23 Date of Discharge: 06/12/23 Primary Care Physician: Dr. Tracey Stewart MD Reason For Visit: ACUTE SADDLE PE, DYSPNEA/CP Diagnosis Discharge Diagnosis (1) Pulmonary embolism: Status: Acute Code(s): I26.99 - Other pulmonary embolism without acute cor pulmonale Medications at Discharge Home Medications rivaroxaban 15 mg tablet (Xarelto) 15 mg PO BID 21 days #42 tabs 06/12/23 Hospital Course Operations None Procedures EKG, Transthoracic echo and - (CTA chest) Summary of Care Provided Minutes Spent on Discharge: 35 Hospital Course: Patient is a 22-year-old female who presented to [facility] ED on 06/11/2023 with worsening shortness of breath on exertion and chest pain. Short hospital course as noted below. Patient discharged home with no therapy needs in stable condition on 06/11. 1. Acute large saddle pulmonary embolism, low risk; history of VTE CTA chest on admit showed large saddle pulmonary embolus extending into bilateral lower lobe and upper lobe branches and multiple segments, along with slight lodgment of main pulmonary artery but no cardiomegaly, normal RV to LV ratio and no RV strain noted. Echo on 06/11 showed EF 53%, no regional wall motion abnormalities noted, normal RV size and function, mildly elevated pulmonary artery systolic pressure of 34 mmHg, no other abnormalities. Patient follows with Dr. Adams with Hem/Onc in the office, last visit in 03/2023. Has history of PE back in 2018 while she was on combo control pills, as well as recent history of acute distal superficial phlebitis involving the small saphenous vein up to the popliteal vein after a long car ride in 12/2022. She completed 6 months of Eliquis after the PE in 2018, and she more recently completed 6 weeks of Xarelto after the superficial vein thrombosis. ? Treated with therapeutic Lovenox twice daily while inpatient. Patient remained hemodynamically stable on room air during admission and dyspnea on exertion improved by hospital day 2. Discussed with Dr. Adams over the phone on day of discharge. He noted that the patient had two recent blood draws at separate times that showed a low protein S level, which would mean she is positive for a hypercoagulable disorder. He noted that she will likely need lifelong anticoagulation therapy but recommended that she see him in the office in the next few weeks to discuss further. Discharged patient on Xarelto with DVT loading dose. Discharged home in stable condition. 2. Recent left great toe surgery with healed bone marrow aspiration ? Procedure done about 1 month prior to this admission. Per her surgeon, recommended that she use boot with ambulation and continue with elevation of the extremity. Patient was on full strength aspirin therapy postoperatively for DVT prophylaxis, will discontinue aspirin and start Xarelto on discharge as noted above. 3. Chronic anemia ? Hemoglobin 12.7 on admit, repeat hemoglobin 11.8 on hospital day 2. Baseline hemoglobin appears to be around 12-13. Stable while inpatient, no signs of bleeding. Recommend outpatient follow-up. Total clinical time spent by myself addressing the patient's medical issues, reviewing all the data, and collaborating with patient's care team: 35 minutes. Physical Exam Const alert, oriented x3, no apparent distress, average body habitus, healthy raffy earing and well nourished Constitutional Narrative: Pleasant young female, sitting up comfortably in bed, conversing normally, no acute distress. General Appearance: cooperative, comfortable, well kempt and well developed HEENT normocephalic, head/scalp atraumatic, hearing grossly normal bilaterally, nasal mucous membranes and turbinates normal and moist oral mucous membranes Eyes PERRL, EOMs intact bilaterally and conjunctivae normal Neck full ROM Chest inspection of chest normal Resp normal respiratory effort, normal air movement, no use of accessory muscles and clear to auscultation bilaterally Resp Narrative: Breathing comfortably on room air at rest. Good air movement throughout bilaterally, no wheezing or crackles noted. Cardio regular rate, regular rhythm, no murmurs and peripheral pulses 2+ throughout GI normal to inspection, nondistended, normoactive bowel sounds, soft to palpation, non-tender and non-distended Back/Spine normal ROM Extremity normal to inspection Skin no rashes or lesions noted Neuro moves all extremities and no focal motor deficits Speech: speech normal Psych mental status grossly normal Weight / BMI Weight Weight: 61.235 kg Body Mass Index (BMI) 22.4 ABG / Lab / Microbiology Data 06/12/23 06:25 06/12/23 06:25 Laboratory: Laboratory Results - last 24 hr 06/11/23 20:20: WBC 7.8, RBC 4.18 L, Hgb 12.7, Hct 37.4, MCV 89.5, MCH 30.4, MCHC 34.0, RDW Std Deviation 38.0, RDW Coeff of Gopi 11.7, Plt Count 173, MPV 10.8, Immature Gran % (Auto) 0.300, Neut % (Auto) 71.4 H, Lymph % (Auto) 20.5, [place] % (Auto) 5.4, Eos % (Auto) 1.8, Baso % (Auto) 0.6, Absolute Neuts (auto) 5.5, Absolute Lymphs (auto) 1.59, Nucleated RBC % 0, PT 13.9, INR 1.1, Sodium 139, Potassium 3.9, Chloride 107, Carbon Dioxide 26.0, Anion Gap 6, BUN 13, Creatinine 0.76, Estim Creat Clear Calc 104.48, Est GFR (MDRD) Af Amer 122, Est GFR (MDRD) Non-Af 101, BUN/Creatinine Ratio 17.2, Glucose 87, Calcium 9.1, Troponin I High Sens 8 06/11/23 23:18: Troponin I High Sens 8, B-Natriuretic Peptide 4.1 06/12/23 06:25: WBC 6.5, RBC 3.83 L, Hgb 11.8 L, Hct 34.2 L, MCV 89.3, MCH 30.8, MCHC 34.5, RDW Std Deviation 38.0, RDW Coeff of Gopi 11.8, Plt Count 173, MPV 11.5, Immature Gran % (Auto) 0.300, Neut % (Auto) 57.1, Lymph % (Auto) 33.2, [place] % (Auto) 6.3, Eos % (Auto) 2.5, Baso % (Auto) 0.6, Absolute Neuts (auto) 3.7, Absolute Lymphs (auto) 2.15, Nucleated RBC % 0, Sodium 139, Potassium 3.5, Chloride 107, Carbon Dioxide 23.0, Anion Gap 9, BUN 11, Creatinine 0.75, Estim Creat Clear Calc 105.87, Est GFR (MDRD) Af Amer 123, Est GFR (MDRD) Non-Af 101, BUN/Creatinine Ratio 14.6, Glucose 91, Calcium 8.7, Total Bilirubin 0.70, AST 18, ALT 21, Alkaline Phosphatase 73, Total Protein 6.6, Albumin 3.5, Globulin 3.1, Albumin/Globulin Ratio 1.1 Radiography Diagnostic Testing: Radiology Impression Chest CTA 06/11/23 19:41 IMPRESSION: Large saddle pulmonary embolus without evidence of right heart strain. Chronic prominent left ventricular chamber size. Follow-up echocardiogram may be beneficial when clinically able to exclude cardiomyopathy. Electronically Signed: Jesse Montaño MD at 21:24 EDT Reading Location ID and State: [facility] / [place] Tel , Service support , ADDENDUM: 06/11/23 2212 IMPRESSION: Large saddle pulmonary embolus without evidence of right heart strain. Chronic prominent left ventricular chamber size. Follow-up echocardiogram may be beneficial when clinically able to exclude cardiomyopathy. N.B. : The above Results were Read Back by Jesse Montaño MD to Lance Espinoza DO, and understanding confirmed on 06/11/2023 22:05:42 (ET). Electronically Signed: Jesse Montaño MD at 21:24 EDT Reading Location ID and State: [facility] / [place] Tel , Service support , Echocardiogram 06/11/23 23:59 Interpretation Summary Normal LV size. Left ventricular systolic function is normal. The estimated ejection fraction is 53 %. Pulmonary artery systolic pressure is 34 mmHg. Ordering Physician: Michelle Rodriguez Referring Physician: Tracey Stewart Performed By: Verónica Jamil and Student D/C Instructions Discharge Diet: No restrictions Weight Bearing Status: Full weight bearing Meaningful Use Info Meaningful Use Diagnoses (Choose all that apply): VTE VTE Anticoag overlap given w/in hospital stay or rx'd at wi?: Yes Pt receive overlap for 5 days?: Yes Discharge Plan Admission Admit Date/Time: 06/11/23 22:25 Primary Reason for Your Visit: Shortness of breath Attending Provider: Jignesh Castellon Primary Care Provider: Tracey Stewart Consulting Providers: Michelle Rodriguez Instructions Additional Instructions / Restrictions: Please take Xarelto below as instructed. Spoke with Dr. Adams over the phone and he agreed with Xarelto - Noted that you will need at least 3 months of therapy and likely will need lifelong anticoagulation. Please call his office in the next few weeks to schedule a follow-up appointment with him. Discharge Orders/Prescriptions Prescriptions: New Xarelto 15 mg tablet 15 mg PO BID 21 Days Qty: 42 0RF Discontinued aspirin 325 mg capsule 325 mg PO DAILY Referrals / Follow Up: Tracey Stewart MD [Primary Care Provider] - Disposition Disposition (needs filled in before D/C Order can be placed): Home, Self Care Charges/Coding Visit Charges Inpatient E&M: 29630 Disch Hosp >30min
[2023-06-12 13:49] VITALS: O2SAT 94; O2SAT 96
[2023-06-12 16:05] VITALS: BP 100/61; PULSE 79; RESP 16; TEMP 36.6; O2SAT 99
--- NOTE | 2023-06-12 16:15 | CASEMGMT ---
Patient has order for discharge. Patient to discharge on Xarelto starter pack. OPAL SOMMER called [facility] and there is no copay for Xarelto but they do not have a starter pack for Xarelto until tomorrow. OPAL SOMMER called [facility] and they have no starter pack either. OPAL SOMMER discussed with patient and mother regarding no starter pack available. Per [facility] they have 15mg Xarelto to fill partial prescription but will need order. Patient and mother agreeable to have prescription filled at [facility]. OPAL SOMMER updated hospitalist and states he will send script for Xarelto 15mg PO BID x21 days and then patient to follow up with PCP or Dr Adams for additional dosing. OPAL SOMMER called [facility] and script had no copay. OPAL SOMMER updated patient and mother regarding script at [facility] and mother states she will pick it up. Patient and mother denied further needs or concerns regarding discharge.
--- NOTE | 2023-06-12 16:30 | CASEMGMT ---
Social Work - SDOH assessment. Completed social determinants of health screening based on trigger indicating patient had concerns with current line situation. Patient denies any concerns during social work visit reporting to live with parents and to feel safe in his home situation. Denies living situation has any type of safety concerns. Patient reports plan to move in the next month or two to [place] to live with her fianc?. 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 Patient denies any other concerns with basic needs. -ARLENE Turner, LEATHER BELT SHAPER *This note was generated with [employer] dictation software. It may contain incorrect words, spelling, and punctuation that were not noted in review of the chart prior to signing*
== END 2023-06-12 16:44 | disposition home or self-care (01) ==
LOC: ED 22:24 → PCU 06-12 06:21
PROVIDERS: Admitting Provider Family Medicine; Emergency Provider Emergency Medicine; PCP Internal Medicine; Visit Provider Hospitalist
DX: I26.92 Saddle embolus of pulmonary artery without acute cor pulmonale (principal); D50.9 Iron deficiency anemia, unspecified; Z79.899 Other long term (current) drug therapy; Z86.718 Personal history of other venous thrombosis and embolism; Z86.711 Personal history of pulmonary embolism; M19.90 Unspecified osteoarthritis, unspecified site; Z79.82 Long term (current) use of aspirin; K59.09 Other constipation; K21.9 Gastro-esophageal reflux disease without esophagitis; Z98.890 Other specified postprocedural states
CPT/HCPCS: 36415; 71275; 80048; 80053; 83880; 84484; 85025; 85610; 93005; 93306; 94668; 96372; 96374; 96375; 99221; 99285; Q9967; A4216; G0378; J2405